=== PATIENT | male | born 1970 | race Caucasian/White ===

== ENCOUNTER 2017-08-16 12:43 | Emergency (ER) | payer SELFPAY ==
[~2017-08-16] VITALS: Ht 167.6 cm; Wt 79.4 kg
--- OUTSIDE RECORDS SUMMARY | 2017-08-16 12:45 | XMS REPORT ---
Author Author [facility] Address Unknown Phone Unavailable Care Team Providers Care Roping Tender Name Role Phone MERISSA PIERCE Unavailable Unavailable Problems This patient has no known problems. Allergies, Adverse Reactions, Alerts This patient has no known allergies or adverse reactions. Medications This patient has no known medications. Encounters Start Date/Time End Date/Time Encounter Type Admission Type Attending Clinicians Care Facility Care Department Encounter ID 2017-06-16 11:43:36 2017-06-16 11:43:36 Emergency [facility] [id number] Results Test Description Test Time Test Comments Text Results Atomic Results Result Comments CHEST SINGLE (NOT PORTABLE) [place] [address] Patient Name: MATHIEU CADENA JR MR #: [id number] : 1970 Age/Sex: 47/M Req #: [id number] Adm Physician: Ordered by: RITU KHANNA MD Report #: [id number] Location: ER Room/Bed: Procedure: [id number] DX/CHEST SINGLE (NOT PORTABLE) Exam Date: 04/04/17 Exam Time: 1999 REPORT STATUS: Signed CHEST SINGLE (NOT PORTABLE), 04/04/2017 7:41 PM Technique: CHEST SINGLE (NOT PORTABLE) Comparison: None available. Clinical history: S CHEST PAIN S [id number] S [address] Findings: Unremarkable appearance of the heart, mediastinum, lungs and pleural spaces. Impression: 1. Lines/Tubes: None 2. No acute abnormality. Signed by: Dr Dean Su MD on 04/04/2017 8: 27 PM Dictated By: DEAN SU MD 26 Transcribed By: VLADIMIR on 04/04/172026 COPY TO: RITU KHANNA MD
[2017-08-16 13:42] VITALS: BP 121/85
== END 2017-08-16 13:59 | disposition home or self-care (01) ==
LOC: ER 12:43
DX: L04.0 Acute lymphadenitis of face, head and neck (principal)
CPT/HCPCS: 99282